=== PATIENT | female | born 2000 | race Caucasian/White ===

== ENCOUNTER 2021-09-10 20:33 | Inpatient (IN) ==
[2021-09-10] MEDS ORDERED: Dinoprostone 10 MG VAG.SUPP VAGINAL ONE (21:17)
[2021-09-10 23:07] LABS: Urine Benzodiazepine Screen None Detected (None Detect); Urine Cannabinoids Screen None Detected (None Detect); Urine Opiates Screen None Detected (None Detect)
[2021-09-12] MEDS ORDERED: Oxytocin in LR 20 UNITS/1,000 ML BAG IVPB SCH (13:00)
[2021-09-12 13:58] LABS: Hematocrit 39 % (35-47); Hemoglobin 13.2 g/dL (12.0-16.0); Mean Corpuscular HGB Conc 34 g/dL (31-36); Mean Corpuscular Hemoglobin 30 pg (27-31); Mean Corpuscular Volume 89 fL (80-97); Mean Platelet Volume 11.7 fL (7.4-10.4); Platelet Count 103 10^3/uL (150-450); Red Blood Count 4.34 10^6 /uL (3.70-4.87); Red Cell Distribution Width 15 % (10-15)
[2021-09-12] MEDS ORDERED: Lactated Ringers 1000 ml BAG 1,000 ML IV ONE ×2 (14:09→20:42)
[2021-09-12 15:17] LABS: ABS Lymphocytes 1.3 10^3/ul (1.0-4.8); ABS Monocytes 0.5 10^3/ul (0-0.8); ABS Neutrophils 5.1 10^3/ul (1.5-7.7); Eosinophil % 0.6 %; Lymphocyte % 19.3 %; Nucleated Red Blood Cells % 0.1
[2021-09-12 17:27] LABS: HIV 4th Generation Nonreactive (Nonreactive)
[2021-09-12] MEDS ORDERED: OBEPIDURAL (200 ML) 200 ML EPIDURAL ONE (19:10)
[2021-09-12] MEDS ORDERED: Lidocaine 1% w EPI 1:200,000 SDV 30 ML VIAL ONE (19:28)
[2021-09-12] MEDS: Lactated Ringers 1000 ml BAG 1,000 ML IV SCH ×2 (19:30→20:18)
[2021-09-12] MEDS ORDERED: Sodium Citrate/Citric Acid LIQ 15 ML UDC PO PRN (20:42)
[2021-09-12] MEDS ORDERED: Phenylephrine 40 mcg/mL 10mL (400mcg) SYRINGE IV PUSH PRN ×2 (20:42)
[2021-09-12] MEDS ORDERED: Lactated Ringers 1000 ml BAG 1,000 ML IV SCH (21:00)
[2021-09-12] MEDS ORDERED: OBEPIDURAL (200 ML) 200 ML EPIDURAL SCH (21:00)
[2021-09-12 21:10] LABS: Urine Appearance Clear; Urine Bilirubin Negative (Negative); Urine Blood Trace (Intact) (Negative); Urine Color Yellow; Urine Glucose Negative (Negative); Urine Ketones Negative (Negative); Urine Nitrite Negative (Negative); Urine Protein Negative (Negative); Urine Specific Gravity 1.025 (1.005-1.030); Urine Urobilinogen 0.2 (Negative) (Negative)
[2021-09-12 21:14] LABS: Urine Bacteria Absent (Absent); Urine Red Blood Cell Trace(0-2/hpf) (Absent); Urine Squamous Epithelial Cell Present (Absent); Urine White Blood Cell Trace(0-5/hpf) (Absent)
[2021-09-13] MEDS ORDERED: Oxytocin in LR 20 UNITS/1,000 ML BAG IVPB SCH (08:00)
[2021-09-13] MEDS ORDERED: Lactated Ringers 1000 ml BAG 1,000 ML IV SCH (08:00)
[2021-09-13] MEDS: Witch Hazel PAD JAR TOPICAL PRN ×2 (10:29→22:00)
[2021-09-13] MEDS: Dibucaine 1% OINT 28.35 GM TUBE PR PRN ×2 (10:29→21:59)
[2021-09-13] MEDS ORDERED: Lidocaine 1% MPF 5 ML VIAL ONE (23:09)
[2021-09-14 06:45] LABS: ABS Lymphocytes 1.6 10^3/ul (1.0-4.8); ABS Monocytes 0.9 10^3/ul (0-0.8); Eosinophil % 0.4 %; Hematocrit 26 % (35-47); Lymphocyte % 12.8 %; Mean Corpuscular HGB Conc 34 g/dL (31-36); Mean Corpuscular Hemoglobin 30 pg (27-31); Mean Corpuscular Volume 89 fL (80-97); Mean Platelet Volume 11.4 fL (7.4-10.4); Platelet Count 99 10^3/uL (150-450); Red Blood Count 2.98 10^6 /uL (3.70-4.87); Red Cell Distribution Width 15 % (10-15); White Blood Count 12.6 10^3/uL (3.5-10.8)
[2021-09-14] MEDS ORDERED: Measles, Mumps,Rubella VACC 0.5 ML/VIAL SUBCUT ONE (09:00)
[2021-09-14 11:33] VITALS: BP 117/81
== END 2021-09-14 19:22 | disposition home or self-care (01) | DRG 560 ==
LOC: MCHOBOUT 20:33 → MCHOB 21:08
PROVIDERS: ADMIT Midwife; ATTEND Midwife

== ENCOUNTER 2023-07-20 02:20 | Inpatient (IN) ==
[2023-07-20] MEDS ORDERED: Lidocaine 1% VIAL 10 MG/ML 30 ML VIAL INJ PRN (03:11)
[2023-07-20] MEDS: Oxytocin 10 UNITS/ML 1 ML VIAL ONE (05:17)
[2023-07-20] MEDS: Buffered Lidocaine 1% SYRIN 1 ml INTRADERM ONE (05:23)
[2023-07-20] MEDS: Lactated Ringers 1000 ml BAG 1,000 ML IV ONE (05:23)
[2023-07-20] MEDS ORDERED: RHO D Immune Globulin (HUMAN) 300 MCG = 1,500 I.U. INJ IM PRN (05:50)
[2023-07-20] MEDS ORDERED: Dibucaine 1% OINT 28.35 GM TUBE PR PRN (05:50)
[2023-07-20] MEDS ORDERED: Glycerin ADULT 2.4 gm SUPP PR PRN (05:50)
[2023-07-20] MEDS ORDERED: Witch Hazel PAD JAR TOPICAL PRN (05:50)
[2023-07-20] MEDS: Oxytocin 10 UNITS/ML 1 ML VIAL IM ONE (05:58)
[2023-07-20] MEDS ORDERED: Lactated Ringers 1000 ml BAG 1,000 ML IV SCH (06:00)
[2023-07-20 06:07] LABS: Urine Benzodiazepine Screen None Detected (None Detect); Urine Cannabinoids Screen None Detected (None Detect); Urine Opiates Screen None Detected (None Detect)
[2023-07-20] MEDS: Lactated Ringers 1000 ml BAG 1,000 ML IV SCH (07:00)
[2023-07-20 12:38] LABS: Hematocrit 28.6 % (35-45); Hemoglobin 9.9 g/dL (11.5-14.3); Mean Corpuscular Hgb Conc 34.6 g/dL (31-36); Mean Corpuscular Volume 83.7 fL (80-97); Mean Platelet Volume 11.1 fL (7.5-11.2); Platelet Count 146 10^3/uL (150-450); Red Blood Count 3.41 10^6/uL (3.63-4.92); Red Cell Distribution Width 14.4 % (12-17); White Blood Count 15.3 10^3/uL (3.8-11.8)
[2023-07-21 06:37] LABS: ABS Eosinophils 0.1 10^3/uL (0.0-0.5); ABS Lymphocytes 2.9 10^3/uL (1.0-4.8); ABS Monocytes 0.8 10^3/uL (0.0-0.9); ABS Neutrophils 8.2 10^3/uL (1.5-7.6); ABS Nucleated RBC 0.01 10^3/ul; Eosinophil % 0.7 %; Hematocrit 25.1 % (35-45); Hemoglobin 8.5 g/dL (11.5-14.3); Lymphocyte % 24.1 %; Mean Corpuscular Hemoglobin 28.7 pg (27-33); Mean Corpuscular Hgb Conc 33.9 g/dL (31-36); Mean Corpuscular Volume 84.6 fL (80-97); Mean Platelet Volume 10.6 fL (7.5-11.2); Nucleated Red Blood Cells % 0.1 %/100WBC (0.0-0.8); Platelet Count 133 10^3/uL (150-450); Red Blood Count 2.97 10^6/uL (3.63-4.92); Red Cell Distribution Width 14.5 % (12-17)
[2023-07-21 08:18] VITALS: BP 120/54
== END 2023-07-21 12:55 | disposition home or self-care (01) | DRG 560 ==
LOC: MCHOBOUT 02:20 → MCHOB 03:15
PROVIDERS: ADMIT Midwife; ATTEND Midwife